=== PATIENT | female | born 1940 | race Caucasian/White ===

== ENCOUNTER → 2017-04-17 | Outpatient (CLI) | payer OTHER ==
[~2017-04-17] MED LIST: ALPRAZOLAM PO; AMBIEN PO; SYNTHROID PO
--- NOTE | ~2017-04-17 | MY11 ---
[facility] A Service of [facility] RADIOLOGY TEXT RESULTS PATIENT: RANJANA ARROYO LOCATION: [facility] : 36 UNIT #: [id number] AGE: [address]: Kylah Newton MD SEX: F ORDER DR: [id number] [address] [address] [id number] O MR#: [id number] Acc #: [id number] NAME: RANJANA ARROYO : 1940 SEX: F STUDY DATE/TIME: 04/17/2017 11:49 UNIT: [facility] ROOM: STUDY DESCRIPTION: MY Mammogram Screening Dig [place] Attending Physician: Kylah Newton M.D. Referring Physician: Kylah Newton M.D. Ordering Physician: Kylah Newton M.D. Primary Care Physician: Kylah Newton M.D. MEDICAL IMAGING REPORT This report is preliminary unless electronic signature is present. EXAM Digital screening mammogram, 04/17/2017; [facility]. HISTORY 76-year-old woman, no risk elevation. Annual screen. COMPARISON Mammograms date to 12/02/2005, with most recent 10/11/2015. TECHNIQUE Digital imaging of each breast was completed utilizing screening protocol. Review includes FDA-approved CAD device. FINDINGS Breast parenchyma is partially fatty replaced with subareolar duct prominence again noted bilaterally. Occasional benign calcification present in each breast. I see no breast mass. There are no interval occurring micro calcifications and no suspicious architectural deformity. IMPRESSION Stable benign mammogram. Annual screening recommended. Patients over the age of 40 are entered into a reminder system with target due date for the next mammogram. A result letter will also be sent to the patient. BIRADS: 2 Benign findings. Dictated by... Pedro Calvo M.D. [facility] A Service of [facility] RADIOLOGY TEXT RESULTS PATIENT: RANJANA ARROYO LOCATION: [facility] : 36 UNIT #: [id number] AGE: [address]: Kylah Newton MD SEX: F ORDER DR: THIS IS AN ELECTRONICALLY VERIFIED REPORT Pedro Calvo M.D. at 04/18/2017 7:10 AM MARY/adri TD: 04/17/2017 20:26 JOB #: [id number] MEDICAL IMAGING REPORT Page 1 of 1
== END | disposition home or self-care (01) ==
LOC: SMAM 11:10
DX: Z12.31 Encounter for screening mammogram for malignant neoplasm of breast (principal)
CPT/HCPCS: G0202